=== PATIENT | male | born 1975 ===

== ENCOUNTER 2018-04-16 20:17 | Emergency (ER) | payer OTHER, MEDICAID ==
--- NOTE | 2018-04-16 20:45 | ED PDOC ---
Arrival/HPI - General Chief Complaint: Abnormal Skin Integrity Time Seen by Provider: 04/16/18 20:30 Historian: Patient - History of Present Illness Narrative History of Present Illness (Text): 04/16/18 20:42 A 43 year old male, with no significant past medical history, presents to the emergency department with a complaint of a laceration to his top lip s/p fall. The patient reports that he was at work when he suddenly tripped and fell. He states that he was carrying plates and was unable to catch himself because he did not want to drop the plates. Patient He reports he hit his lip against a chair. Patient sustained a laceration to the lip. He denies fevers, chills, headache, dizziness, chest pain, shortness of breath, dyspnea on exertion, cough, abdominal pain, nausea, vomiting, diarrhea, back pain, neck pain, urinar y/bowel changes, or any other complaint. Time/Duration: Prior to Arrival Symptom Onset: Sudden Symptom Course: Unchanged Activities at Onset: Rest, Light Context: Work Past Medical History - Provider Review Nursing Documentation Reviewed: Yes - Infectious Disease Hx of Infectious Diseases: None - Cardiac Hx Cardiac Disorders: No - Hematological/Oncological Hx Cirrhosis: Yes - Psychiatric Hx Substance Use: No - Anesthesia Hx Anesthesia: No Family/Social History - Physician Review Nursing Documentation Reviewed: Yes Family/Social History: No Known Family HX Smoking Status: Never Smoked Hx Alcohol Use: Yes (not anymore) Hx Substance Use: No Allergies/Home Meds Allergies/Adverse Reactions: Allergies No Known Allergies Allergy (Verified 04/16/18 20:35) Home Medications: Home Meds Medication Instructions Recorded Confirmed Spironolactone [Aldactone] 3 tab PO BID 04/16/18 04/16/18 Review of Systems - Physician Review All systems were reviewed & negative as marked: Yes - Review of Systems Constitutional: absent: Fevers Respiratory: absent: SOB, Cough Cardiovascular: absent: Chest Pain, GALLARDO Gastrointestinal: absent: Abdominal Pain, Stool Changes, Diarrhea, Nausea, Vomiting Genitourinary Male: absent: Urinary Output Changes Musculoskeletal: absent: Back Pain, Neck Pain Skin: Laceration (Laceration to upper lip) Neurological: absent: Headache, Dizziness Physical Exam - Physical Exam Narrative Physical Exam (Text): 04/16/18 20:45 Gen: VS reviewed, alert, well developed, well nourished, nontoxic, mild distress. ENT: normal pharynx. Deep laceration to the left upper lip involving the vermilion border, subcutaneous fat and muscle. Eye: EOMI, PERRL. Neck: no JVD, supple, no adenopathy. CV: regular rate, regular rhythm, no rubs, no murmur, no gallops, S1, S2, pulses equal and strong. Pulm: no distress, clear to auscultation, no wheeze, no rhonchi, breath sounds equal, no rales. Abd: soft, nontender, no guarding, no rebound, no rigidity, normal bowel sounds. Ext: no edema. Skin: good color, no rash, no cyanosis. Psych: responds appropriately to questions, normal affect. Neuro: oriented x 3, CN2-12 intact grossly, motor intact, sensation intact. Appearance: Positive for: Well-Appearing, Non-Toxic, Comfortable Pain Distress: None Mental Status: Positive for: Alert and Oriented X 3 Medical Decision Making ED Course and Treatment: 04/16/18 20:46 Impression: A 43 year old male presents to the Emergency department with a complaint of a laceration to his top lip s/p fall at work prior to arrival. Plan: -- Reassess and disposition Progress Notes: 04/16/18 22:19 PROCEDURE: LACERATION REPAIR Performed by the emergency provider with verbal consent. time out performed Location: left upper lip Length: 5 cm Description: {"clean wound edges","no foreign bodies"} Distal CMS: Normal. No deficits. Neurovascularly intact. Anesthesia: Lidocaine 1% with epi, 0.5cc local infiltration and 1cc infraorbital block. good anesthesia obtained. Preparation: The wound was cleaned with NS and Betadien. The area was prepped and draped in the usual sterile fashion. Exploration: The wound was explored and no foreign bodies were found. Procedure: The wound was closed with 4 6-0 polysorb simple interrupted and 7 5-0 prolene simple interrupted. There was {good / appropriate / adequate /loose} approximation. In total, 11 were used. The eric border approximated well. Post-Procedure: Good closure and hemostasis. The patient tolerated the procedure well and there were no complications. CSM remains intact. Post procedure dressing applied. 04/16/18 23:53 - Scribe Statement The provider has reviewed the documentation as recorded by the Lynnette Ventura Provider Scribe Attestation: All medical record entries made by the Lynnette were at my direction and personally dictated by me. I have reviewed the chart and agree that the record accurately reflects my personal performance of the history, physical exam, medical decision making, and the department course for this patient. I have also personally directed, reviewed, and agree with the discharge instructions and disposition. Disposition/Present on Arrival - Present on Arrival Any Indicators Present on Arrival: No History of DVT/PE: No History of Uncontrolled Diabetes: No Urinary Catheter: No History of Decub. Ulcer: No History Surgical Site Infection Following: None - Disposition Have Diagnosis and Disposition been Completed?: Yes Diagnosis: Lip laceration Disposition: HOME/ ROUTINE Disposition Time: 23:20 Patient Plan: Discharge Patient Problems: Current Active Problems Problem Status Onset Lip laceration Acute Condition: STABLE Discharge Instructions (ExitCare): Laceration Repair With Wilbert (DC) Additional Instructions: return in 5-7 days to have the suture removed. avoid playing with you lip with your tongue. try to avoid getting direct food into the wound when you eat. Referrals: PCP,NO [Primary Care Provider] - Follow up with primary Forms: [facility] (Mongolian), WORK NOTE
[2018-04-16] MEDS ORDERED: Lidocaine 1%/Epinephrine 1:100000 30 ml vial IJ ONE (21:48)
[2018-04-16] MEDS ORDERED: Bacitracin 500 Units/gm Oint Foilpak UD ONE (23:18)
[2018-04-17 06:50] VITALS: RESP 18; TEMP 97.9
[2018-04-17 06:54] VITALS: BP 127/74; PULSE 72; O2SAT 100
== END 2018-04-16 23:25 | disposition home or self-care (01) ==
LOC: ED 20:17
DX: S01.511A Laceration without foreign body of lip, initial encounter (principal); W01.0XXA Fall on same level from slipping, tripping and stumbling without subsequent striking against object, initial encounter

== ENCOUNTER 2018-04-23 11:53 | Emergency (ER) | payer OTHER, MEDICAID ==
[2018-04-23 12:09] VITALS: BP 109/67; PULSE 83; RESP 18; TEMP 97.9; O2SAT 100; BMI 20.3
[2018-04-23] MEDS ORDERED: Bacitracin Ointment 30 GM TUBE TOP ONE (12:45)
--- NOTE | 2018-04-23 12:48 | ED PDOC ---
Arrival/HPI - General Historian: Patient - History of Present Illness Narrative History of Present Illness (Text): Patient is a 43 yr old male who had sutures placed for laceration on upper left lip 04/16/18 he is here for suture removal. he deneis any purulent discharge selling, pain at the site or difficulty moving his lips. 04/23/18 12:49 Time/Duration: Prior to Arrival, 1 week Symptom Onset: Sudden Symptom Course: Improving <Apurva Barlow - Last Filed: 04/23/18 13:01> <Steve Rosen - Last Filed: 04/23/18 13:48> - General Chief Complaint: Suture/Staple Removal Time Seen by Provider: 04/23/18 11:56 Past Medical History - Provider Review Nursing Documentation Reviewed: Yes - Infectious Disease Hx of Infectious Diseases: None - Cardiac Hx Cardiac Disorders: No - Pulmonary Hx Respiratory Disorders: No - Neurological Hx Neurological Disorder: No - HEENT Hx HEENT Disorder: No - Renal Hx Renal Disorder: No - Hematological/Oncological Hx Cirrhosis: Yes - Psychiatric Hx Substance Use: No - Anesthesia Hx Anesthesia: No <Apurva Barlow - Last Filed: 04/23/18 13:01> Family/Social History - Physician Review Nursing Documentation Reviewed: Yes Family/Social History: Unknown Family HX Smoking Status: Never Smoked Hx Alcohol Use: Yes (not anymore) Frequency of alcohol use: Socially Hx Substance Use: No <Apurva Barlow - Last Filed: 04/23/18 13:01> Allergies/Home Meds <Apurva Barlow - Last Filed: 04/23/18 13:01> <Steve Rosen - Last Filed: 04/23/18 13:48> Allergies/Adverse Reactions: Allergies No Known Allergies Allergy (Verified 04/16/18 20:35) Home Medications: Home Meds Medication Instructions Recorded Confirmed Spironolactone [Aldactone] 3 tab PO BID 04/16/18 04/23/18 Review of Systems - Physician Review All systems were reviewed & negative as marked: Yes - Review of Systems Constitutional: absent: Fevers Respiratory: absent: SOB Cardiovascular: absent: Chest Pain Gastrointestinal: absent: Abdominal Pain Neurological: absent: Headache, Dizziness, Speech Changes, Facial Droop Endocrine: absent: Diaphoresis <Apurva Barlow - Last Filed: 04/23/18 13:01> Physical Exam Vital Signs Temp Pulse Resp BP Pulse Ox 04/23/18 12:04 97.9 F 83 18 109/67 100 Temperature: Afebrile Blood Pressure: Normal Pulse: Regular Respiratory Rate: Normal Appearance: Positive for: Well-Appearing, Non-Toxic, Comfortable Mental Status: Positive for: Alert and Oriented X 3 - Systems Exam Head: Present: Atraumatic, Normocephalic Mouth: Present: Other (prolene sutures in left upper outer lip) Neck: Present: Normal Range of Motion Respiratory/Chest: No: Respiratory Distress, Accessory Muscle Use Neurological: Present: GCS=15, CN II-XII Intact, Speech Normal Skin: Present: Warm, Dry, Normal Color. No: Rashes, Erythematous, Induration, Abscess Psychiatric: Present: Alert, Oriented x 3, Normal Insight, Normal Concentration <Apurva Barlow - Last Filed: 04/23/18 13:01> Vital Signs Temp Pulse Resp BP Pulse Ox 04/23/18 12:04 97.9 F 83 18 109/67 100 <Steve Rosen - Last Filed: 04/23/18 13:48> Medical Decision Making ED Course and Treatment: Impression: 43 yr old male with sutures placed 04/16 here for removal Plan: remove sutures place bacitracin over area 04/23/18 12:52 PROCEDURE: SUTURE REMOVAL Performed by the emergency provider Location: left upper outer lip Procedure: In total, 7 sutures were removed. patient tolerated the procedure well, with no complications, bacitracin was placed over the area at the conlusion of the procedure 04/23/18 13:01 - Medication Orders Current Medication Orders: Discontinued Medications Bacitracin (Bacitracin) 0 gm TOP ONCE ONE Stop: 04/23/18 12:46 <Apurva Barlow - Last Filed: 04/23/18 13:01> ED Course and Treatment: 04/23/18 13:00 Patient is a 43 year old male presenting to the emergency department for suture removal. In agreement with resident note, which includes further HPI details. Patient was seen and evaluated with resident, came up with plan and treatment together. - Medication Orders Current Medication Orders: Discontinued Medications Bacitracin (Bacitracin) 0 gm TOP ONCE ONE Stop: 04/23/18 12:46 <Steve Rosen - Last Filed: 04/23/18 13:48> - PA / SITE SAFETY COORDINATOR / Resident Statement / has reviewed & agrees with the documentation as recorded. MD/DO has examined the patient and agrees with the treatment plan. - Scribe Statement The provider has reviewed the documentation as recorded by the Lynnette Birch All medical record entries made by the Scribe were at my direction and personally dictated by me. I have reviewed the chart and agree that the record accurately reflects my personal performance of the history, physical exam, medical decision making, and the department course for this patient. I have also personally directed, reviewed, and agree with the discharge instructions and disposition. <Steve Rosen - Last Filed: 04/23/18 13:48> Disposition/Present on Arrival - Present on Arrival Any Indicators Present on Arrival: No History of DVT/PE: No History of Uncontrolled Diabetes: No Urinary Catheter: No History of Decub. Ulcer: No History Surgical Site Infection Following: None - Disposition Have Diagnosis and Disposition been Completed?: Yes Disposition Time: 12:55 Patient Plan: Discharge <Apurva aBrlow - Last Filed: 04/23/18 13:01> <Steve Rosen - Last Filed: 04/23/18 13:48> - Disposition Diagnosis: Visit for suture removal Disposition: HOME/ ROUTINE Patient Problems: Current Active Problems Problem Status Onset Visit for suture removal Acute Condition: IMPROVED Discharge Instructions (ExitCare): Stitches Removal Additional Instructions: If you begin to have increased pain swelling or signs of infection at the site or any other concerning symptoms please return to the nearest ER for further evaluation. Forms: [employer] (Niuean)
== END 2018-04-23 13:25 | disposition home or self-care (01) ==
LOC: ED 11:53
DX: Z48.02 Encounter for removal of sutures (principal)